=== PATIENT | female | born 1965 | race Caucasian/White ===

== ENCOUNTER 2021-06-17 11:14 | Inpatient (IN) ==
[2021-06-17] MEDS ORDERED: Ondansetron 4 MG/2 ML VIAL ONE (13:58)
[2021-06-17] MEDS ORDERED: *HR* Midazolam HCl 2 MG/2 ML VIAL ONE (13:58)
[2021-06-17] MEDS ORDERED: Lidocaine -MPF 4% 5 ML AMPUL ONE (13:58)
[2021-06-17] MEDS ORDERED: Lidocaine -MPF 2% 5 ML VIAL ONE (13:58)
[2021-06-17] MEDS ORDERED: *HR* Propofol 200 MG/20 ML VIAL IVP ONE (13:58)
[2021-06-17] MEDS ORDERED: *HR* Rocuronium Bromide 50 MG/5 ML VIAL ONE (13:58)
[2021-06-17] MEDS ORDERED: *HR* FentaNYL (PF) 100 MCG/2 ML VIAL ONE (13:58)
[2021-06-17] MEDS ORDERED: Piperacillin/Tazobactam 3.375 GM in Water for inj. (sterile) 20 ML IVP ONE (14:04)
[2021-06-17] MEDS ORDERED: Ondansetron 4 MG/2 ML VIAL IVP PRN ×3 (14:05→17:56)
[2021-06-17] MEDS ORDERED: *HR* HYDROmorphone PF 0.5 MG/0.5 ML SYRINGE IVP PRN (14:09)
[2021-06-17] MEDS ORDERED: 0.9 % Sodium Chloride 1,000 ML IVC SCH ×2 (14:15→17:56)
[2021-06-17] MEDS ORDERED: Acetaminophen IV 1,000 MG/100 ML BAG IVPB ONE ×2 (14:38→14:49)
[2021-06-17] MEDS ORDERED: *HR* HYDROMORPHONE 2 MG/ML VIAL ONE (15:05)
[2021-06-17] MEDS ORDERED: Sugammadex Sodium 200 MG/2 ML VIAL IV ONE (16:29)
[2021-06-17] MEDS ORDERED: Ipratropium Neb 0.5 MG NEBULIZER IH ONE (17:08)
[2021-06-17] MEDS: *HR* HYDROmorphone 2 MG/ML SYRINGE IVP PRN ×3 (21:00→23:10)
[2021-06-18] MEDS ORDERED: Piperacillin/Tazobactam 3.375 GM in 0.9 % Sodium Chloride Mini Bag 100 ML IVPB SCH
[2021-06-18] MEDS: *HR* HYDROmorphone 2 MG/ML SYRINGE IVP PRN (00:15)
[2021-06-18] MEDS: Acetaminophen IV 1,000 MG/100 ML BAG IVPB SCH ×3 (00:55→05:06)
[2021-06-18] MEDS: 0.9 % Sodium Chloride 1,000 ML IVC SCH ×3 (04:50→23:57)
[2021-06-18] MEDS ORDERED: Ondansetron 4 MG/2 ML VIAL IVP PRN (06:00)
[2021-06-18] MEDS ORDERED: Simethicone 80 MG TAB.CHEW PO PRN (08:06)
[2021-06-18] MEDS: Piperacillin/Tazobactam 3.375 GM in 0.9 % Sodium Chloride Mini Bag 100 ML IVPB SCH ×3 (08:31→23:58)
[2021-06-18] MEDS: Pantoprazole 40 MG VIAL IVP SCH (08:32)
[2021-06-18] MEDS ORDERED: Pantoprazole 40 MG VIAL IVP SCH (09:00)
[2021-06-18 09:10] LABS: Basophils % 0.2 %; Hemoglobin 10.4 g/dL (11.5-15.4); Immature Granulocytes % 0.7 % (0-4); Lymphocytes # 1.4 K/mcL (0.6-4.6); Lymphocytes % 12.2 %; Mean Corpuscular HGB Conc 33.5 g/dL (31.6-35.5); Mean Corpuscular Hemoglobin 30.4 pg (28.0-33.3); Mean Corpuscular Volume 90.6 fL (83.0-100.0); Mean Platelet Volume 10.2 fL (9.4-12.4); Monocytes # 0.8 K/mcL (0.0-1.3); Neutrophils # 8.9 K/mcL (1.6-8.9); Platelet Count 295 K/mcL (140-400); Red Blood Count 3.42 M/mcL (3.82-4.97); Red Cell Distribution Width 13.9 % (11.5-14.5); Segmented Neutrophils % 79.9 %; White Blood Count 11.1 K/mcL (4.3-11.1)
[2021-06-18 09:54] LABS: Alanine Aminotransferase 187 Units/L (7-52); Albumin 3.5 g/dL (3.5-5.7); Albumin/Globulin Ratio 1.1 (1.1-2.2); Alkaline Phosphatase 307 Units/L (34-104); Aspartate Amino Transferase 228 Units/L (13-39); BUN/Creatinine Ratio 14 (6-26); Bilirubin,Direct 1.5 mg/dL (0.0-0.2); Bilirubin,Indirect 0.6 mg/dL (0.0-1.0); Bilirubin,Total 2.1 mg/dL (0.3-1.0); Blood Urea Nitrogen 9 mg/dL (6-20); Calcium 8.6 mg/dL (8.6-10.3); Carbon Dioxide 19 mEq/L (23-29); Chloride 101 mEq/L (98-107); Globulin 3.3 g/dL (2.4-3.5); Glucose 106 mg/dL (70-105); Magnesium 1.9 mg/dL (1.6-2.6); Osmolality,Calculated 277 (280-300); Phosphorous 2.6 mg/dL (2.7-4.5); Potassium 4.6 mEq/L (3.5-5.1); Sodium 134 mEq/L (136-145); Total Protein 6.8 g/dL (6.4-8.9); eGFR For African Americans > 60 (> 60); eGFR For Non-African Americans > 60 (> 60)
[2021-06-18] MEDS: *HR* Heparin 5,000 UNIT/ML VIAL SQ SCH ×2 (12:29→19:08)
[2021-06-18] MEDS ORDERED: Ketorolac 30 MG/ML VIAL IM ONE (12:49)
[2021-06-18] MEDS: Ketorolac 30 MG/ML VIAL IVP SCH ×3 (13:39→23:57)
[2021-06-19] MEDS: *HR* Heparin 5,000 UNIT/ML VIAL SQ SCH ×2 (05:30→17:08)
[2021-06-19] MEDS: Ketorolac 30 MG/ML VIAL IVP SCH ×3 (05:30→17:08)
[2021-06-19 06:04] LABS: Basophils % 0.3 %; Eosinophils # 0.1 K/mcL (0.0-0.6); Eosinophils % 1.5 %; Hematocrit 30.1 % (35.3-44.9); Hemoglobin 9.7 g/dL (11.5-15.4); Immature Granulocytes % 2.9 % (0-4); Lymphocytes # 1.1 K/mcL (0.6-4.6); Lymphocytes % 12.8 %; Mean Corpuscular HGB Conc 32.2 g/dL (31.6-35.5); Mean Corpuscular Volume 90.1 fL (83.0-100.0); Mean Platelet Volume 9.4 fL (9.4-12.4); Monocytes # 0.7 K/mcL (0.0-1.3); Monocytes % 7.7 %; Neutrophils # 6.6 K/mcL (1.6-8.9); Platelet Count 345 K/mcL (140-400); Red Blood Count 3.34 M/mcL (3.82-4.97); Red Cell Distribution Width 14.1 % (11.5-14.5); Segmented Neutrophils % 74.8 %; White Blood Count 8.8 K/mcL (4.3-11.1)
[2021-06-19 06:26] LABS: Alanine Aminotransferase 176 Units/L (7-52); Albumin 3.4 g/dL (3.5-5.7); Albumin/Globulin Ratio 1.1 (1.1-2.2); Alkaline Phosphatase 281 Units/L (34-104); Aspartate Amino Transferase 131 Units/L (13-39); BUN/Creatinine Ratio 6 (6-26); Bilirubin,Direct 2.7 mg/dL (0.0-0.2); Bilirubin,Indirect 0.9 mg/dL (0.0-1.0); Bilirubin,Total 3.6 mg/dL (0.3-1.0); Blood Urea Nitrogen 5 mg/dL (6-20); Calcium 8.5 mg/dL (8.6-10.3); Carbon Dioxide 26 mEq/L (23-29); Chloride 100 mEq/L (98-107); Globulin 3.2 g/dL (2.4-3.5); Glucose 122 mg/dL (70-105); Osmolality,Calculated 279 (280-300); Potassium 3.9 mEq/L (3.5-5.1); Sodium 135 mEq/L (136-145); Total Protein 6.6 g/dL (6.4-8.9); eGFR For African Americans > 60 (> 60); eGFR For Non-African Americans > 60 (> 60)
[2021-06-19] MEDS: Pantoprazole 40 MG VIAL IVP SCH (09:27)
[2021-06-19] MEDS: Piperacillin/Tazobactam 3.375 GM in 0.9 % Sodium Chloride Mini Bag 100 ML IVPB SCH ×2 (09:28→17:09)
[2021-06-19] MEDS: 0.9 % Sodium Chloride 1,000 ML IVC SCH ×3 (12:50→21:05)
[2021-06-20] MEDS: Ketorolac 30 MG/ML VIAL IVP SCH ×3 (00:28→11:47)
[2021-06-20] MEDS: Piperacillin/Tazobactam 3.375 GM in 0.9 % Sodium Chloride Mini Bag 100 ML IVPB SCH ×4 (00:28→23:40)
[2021-06-20 02:27] LABS: Hematocrit 27.7 % (35.3-44.9); Hemoglobin 9.1 g/dL (11.5-15.4); Mean Corpuscular HGB Conc 32.9 g/dL (31.6-35.5); Mean Corpuscular Hemoglobin 29.3 pg (28.0-33.3); Mean Corpuscular Volume 89.1 fL (83.0-100.0); Mean Platelet Volume 9.5 fL (9.4-12.4); Platelet Count 317 K/mcL (140-400); Red Blood Count 3.11 M/mcL (3.82-4.97); White Blood Count 6.7 K/mcL (4.3-11.1)
[2021-06-20 03:15] LABS: Alanine Aminotransferase 151 Units/L (7-52); Albumin 3.2 g/dL (3.5-5.7); Albumin/Globulin Ratio 1.1 (1.1-2.2); Alkaline Phosphatase 253 Units/L (34-104); Aspartate Amino Transferase 99 Units/L (13-39); BUN/Creatinine Ratio 10 (6-26); Bilirubin,Direct 2.9 mg/dL (0.0-0.2); Bilirubin,Total 3.9 mg/dL (0.3-1.0); Blood Urea Nitrogen 5 mg/dL (6-20); Calcium 7.9 mg/dL (8.6-10.3); Carbon Dioxide 25 mEq/L (23-29); Chloride 105 mEq/L (98-107); Glucose 102 mg/dL (70-105); Osmolality,Calculated 285 (280-300); Potassium 3.6 mEq/L (3.5-5.1); Sodium 139 mEq/L (136-145); Total Protein 6.2 g/dL (6.4-8.9); eGFR For African Americans > 60 (> 60); eGFR For Non-African Americans > 60 (> 60)
[2021-06-20] MEDS: *HR* Heparin 5,000 UNIT/ML VIAL SQ SCH ×2 (05:12→18:22)
[2021-06-20] MEDS: 0.9 % Sodium Chloride 1,000 ML IVC SCH ×3 (06:55→19:47)
[2021-06-20] MEDS: Pantoprazole 40 MG VIAL IVP SCH (07:58)
[2021-06-21] MEDS: 0.9 % Sodium Chloride 1,000 ML IVC SCH ×2 (04:03→23:25)
[2021-06-21 05:18] LABS: Alanine Aminotransferase 153 Units/L (7-52); Albumin 3.5 g/dL (3.5-5.7); Albumin/Globulin Ratio 1.2 (1.1-2.2); Alkaline Phosphatase 287 Units/L (34-104); Aspartate Amino Transferase 89 Units/L (13-39); BUN/Creatinine Ratio 9 (6-26); Bilirubin,Direct 2.7 mg/dL (0.0-0.2); Bilirubin,Indirect 1.1 mg/dL (0.0-1.0); Bilirubin,Total 3.8 mg/dL (0.3-1.0); Blood Urea Nitrogen 5 mg/dL (6-20); Calcium 8.2 mg/dL (8.6-10.3); Carbon Dioxide 23 mEq/L (23-29); Chloride 104 mEq/L (98-107); Glucose 91 mg/dL (70-105); Osmolality,Calculated 281 (280-300); Potassium 3.5 mEq/L (3.5-5.1); Sodium 137 mEq/L (136-145); Total Protein 6.5 g/dL (6.4-8.9); eGFR For African Americans > 60 (> 60); eGFR For Non-African Americans > 60 (> 60)
[2021-06-21] MEDS: *HR* Heparin 5,000 UNIT/ML VIAL SQ SCH (05:21)
[2021-06-21 06:03] LABS: Hematocrit 30.1 % (35.3-44.9); Hemoglobin 9.8 g/dL (11.5-15.4); Mean Corpuscular HGB Conc 32.6 g/dL (31.6-35.5); Mean Corpuscular Hemoglobin 28.9 pg (28.0-33.3); Mean Corpuscular Volume 88.8 fL (83.0-100.0); Mean Platelet Volume 9.7 fL (9.4-12.4); Platelet Count 404 K/mcL (140-400); Red Blood Count 3.39 M/mcL (3.82-4.97); Red Cell Distribution Width 14.4 % (11.5-14.5); White Blood Count 8.1 K/mcL (4.3-11.1)
[2021-06-21] MEDS: Piperacillin/Tazobactam 3.375 GM in 0.9 % Sodium Chloride Mini Bag 100 ML IVPB SCH ×3 (08:35→23:25)
[2021-06-21] MEDS: Pantoprazole 40 MG VIAL IVP SCH (08:36)
[2021-06-21] MEDS ORDERED: *HR* Propofol 200 MG/20 ML VIAL IVP ONE ×2 (10:52→15:52)
[2021-06-21] MEDS ORDERED: *HR* FentaNYL (PF) 100 MCG/2 ML VIAL ONE ×3 (10:53→15:52)
[2021-06-21] MEDS ORDERED: *HR* Succinylcholine 200 MG/10 ML VIAL IVP ONE (10:53)
[2021-06-21] MEDS ORDERED: Ondansetron 4 MG/2 ML VIAL ONE ×2 (10:55→15:52)
[2021-06-21] MEDS ORDERED: Indomethacin 50 MG SUPP.RECT RC ONE (12:04)
[2021-06-21] MEDS ORDERED: Lidocaine HCL 4 ML Topical Solution (Laryng-O-Jet Kit Sterile Pak) TP ONE (12:44)
[2021-06-21] MEDS ORDERED: Lidocaine -MPF 2% 5 ML VIAL ONE (12:44)
[2021-06-21] MEDS ORDERED: Ondansetron 4 MG/2 ML VIAL IVP PRN ×2 (15:40→21:36)
[2021-06-21] MEDS ORDERED: *HR* OxyCODONE Immed Rel 5 MG TABLET PO PRN ×2 (15:40→21:36)
[2021-06-21] MEDS ORDERED: *HR* HYDROmorphone PF 0.5 MG/0.5 ML SYRINGE IVP PRN ×2 (15:40→21:36)
[2021-06-21] MEDS ORDERED: CefOXitin 1,000 MG VIAL ONE (15:49)
[2021-06-21] MEDS ORDERED: Lidocaine -MPF 2% 2 ML VIAL ONE (15:52)
[2021-06-21] MEDS ORDERED: Lidocaine -MPF 4% 5 ML AMPUL ONE (15:52)
[2021-06-21] MEDS ORDERED: *HR* Rocuronium Bromide 50 MG/5 ML VIAL ONE ×2 (15:52→19:14)
[2021-06-21] MEDS ORDERED: Isovue-300 50ML VIAL ONE (17:46)
[2021-06-21] MEDS ORDERED: *HR* HYDROMORPHONE 2 MG/ML VIAL ONE (18:58)
[2021-06-21] MEDS ORDERED: Sugammadex Sodium 200 MG/2 ML VIAL IV ONE (19:14)
[2021-06-21] MEDS ORDERED: Simethicone 80 MG TAB.CHEW PO PRN (21:36)
[2021-06-22] MEDS: Ondansetron 4 MG/2 ML VIAL IVP PRN ×2 (00:48→07:59)
[2021-06-22] MEDS: *HR* HYDROmorphone (PF) 1 MG/ML SYRINGE IVP PRN ×3 (04:34→12:52)
[2021-06-22] MEDS ORDERED: *HR* Heparin 5,000 UNIT/ML VIAL SQ SCH (06:00)
[2021-06-22] MEDS: 0.9 % Sodium Chloride 1,000 ML IVC SCH (07:00)
[2021-06-22 07:26] VITALS: PULSE 80
[2021-06-22] MEDS: Piperacillin/Tazobactam 3.375 GM in 0.9 % Sodium Chloride Mini Bag 100 ML IVPB SCH (07:51)
[2021-06-22 08:24] LABS: Hematocrit 30.2 % (35.3-44.9); Hemoglobin 10.1 g/dL (11.5-15.4); Mean Corpuscular HGB Conc 33.4 g/dL (31.6-35.5); Mean Corpuscular Hemoglobin 29.9 pg (28.0-33.3); Mean Corpuscular Volume 89.3 fL (83.0-100.0); Mean Platelet Volume 9.3 fL (9.4-12.4); Platelet Count 447 K/mcL (140-400); Red Blood Count 3.38 M/mcL (3.82-4.97); Red Cell Distribution Width 14.6 % (11.5-14.5)
[2021-06-22 08:27] LABS: White Blood Count 13.4 K/mcL (4.3-11.1)
[2021-06-22 08:30] LABS: Alanine Aminotransferase 119 Units/L (7-52); Albumin/Globulin Ratio 1.1 (1.1-2.2); Alkaline Phosphatase 222 Units/L (34-104); Aspartate Amino Transferase 58 Units/L (13-39); BUN/Creatinine Ratio 16 (6-26); Bilirubin,Total 1.4 mg/dL (0.3-1.0); Blood Urea Nitrogen 10 mg/dL (6-20); Calcium 7.8 mg/dL (8.6-10.3); Carbon Dioxide 24 mEq/L (23-29); Chloride 105 mEq/L (98-107); Globulin 2.7 g/dL (2.4-3.5); Glucose 88 mg/dL (70-105); Osmolality,Calculated 284 (280-300); Potassium 3.7 mEq/L (3.5-5.1); Sodium 138 mEq/L (136-145); Total Protein 5.7 g/dL (6.4-8.9); eGFR For African Americans > 60 (> 60); eGFR For Non-African Americans > 60 (> 60)
[2021-06-22] MEDS ORDERED: Pantoprazole 40 MG VIAL IVP SCH (09:00)
[2021-06-22 10:29] VITALS: BP 113/72; TEMP 97.7; O2SAT 91
== END 2021-06-22 13:18 | disposition short-term general hospital (02) | DRG 409 ==
LOC: 3ANU 11:14 → EMEROOARM 11:14 → 3ANU 14:04 → EMEROOARM 14:04 → 3ANU 15:54 → EMEROOARM 18:15 → 3ANU 18:15
PROVIDERS: ADMIT Surgery; ATTEND Surgery